=== PATIENT | male | born 1995 | race Caucasian/White ===

== ENCOUNTER 2023-01-20 23:14 | Emergency (ER) | payer BC ==
[~2023-01-20] VITALS: Ht 177.8 cm; Wt 149.7 kg
[2023-01-20 23:25] VITALS: BP_SYST 134
--- NOTE | 2023-01-20 23:30 | NUR ---
Patient triaged and placed in waiting room. VSS and patient appears in no acute distress at this time. Accompanied by mother, awaiting available bed, and MD notified of need for MSE.
[2023-01-21 01:16] LABS: BASOPHILS % (AUTO) 0.5 % (0.0-2.0); EOSINOPHILS # (AUTO) 0.3 K/uL (0.0-0.4); EOSINOPHILS % (AUTO) 3.9 % (0.0-4.0); HEMATOCRIT 43.3 % (36-54); HEMOGLOBIN 14.2 g/dL (14.0-18.0); LYMPHOCYTES # (AUTO) 2.9 K/uL (1.0-5.5); LYMPHOCYTES % (AUTO) 38.4 % (20.5-51.5); MEAN CORPUSCULAR HEMOGLOBIN 28 pg (27-31); MEAN CORPUSCULAR HGB CONC 33 % (32-36); MEAN CORPUSCULAR VOLUME 86 fL (79.0-98.0); MONOCYTES # (AUTO) 0.5 K/uL (0.0-1.0); MONOCYTES % (AUTO) 6.3 % (1.7-9.3); NEUTROPHILS # (AUTO) 3.8 K/uL (1.8-7.7); NEUTROPHILS % (AUTO) 50.9 % (40.0-70.0); PLATELET COUNT (AUTO) 224 K/uL (130-430); RED BLOOD CELL COUNT(AUTO) 5.05 MIL/uL (4.2-6.2); RED CELL DISTRIBUTION WIDTH 14.8 % (9.0-15.0); WHITE BLOOD COUNT (AUTO) 7.5 K/uL (4.8-10.8)
[2023-01-21 01:24] LABS: ANION GAP 7 (5-15); CALCIUM 8.9 mg/dL (8.4-11.0); CHLORIDE 102 mmol/L (98-107); CREATININE 0.97 mg/dL (0.55-1.30); GFR AFRICAN AMERICAN 118 mL/min (>90); GLUCOSE 101 mg/dL (70-99); UREA NITROGEN, BLOOD 8 mg/dL (8-21)
[2023-01-21 01:31] LABS: ALANINE AMINOTRANSFERASE 83 U/L (12-78); ASPARTATE AMINOTRANSFERASE 35 U/L (10-37); TOTAL BILIRUBIN 0.4 mg/dL (0.0-1.0)
--- NOTE | 2023-01-21 03:00 | NUR ---
Patient triaged and placed in bed 3. VSS and patient appears in no acute distress at this time. Accompanied by mother, report given to tanesha trent
--- NOTE | 2023-01-21 03:15 | NUR ---
md weston along with myself at bedside for eval and orders.
[2023-01-21] MEDS ORDERED: DICL20GE TP (03:33)
[2023-01-21] MEDS ORDERED: LIDO1ADH22 TP (03:34)
[2023-01-21] MEDS ORDERED: NAPR-1172 PO (03:34)
[2023-01-21] MEDS: LIDOCAINE PATCH 5% 1 EA TP ONE (03:46)
[2023-01-21] MEDS: KETOROLAC TROMETHAMINE 30 MG VIAL IM ONE (03:49)
[2023-01-21] MEDS: ACETAMINOPHEN 500 MG TABLET PO ONE (03:53)
== END 2023-01-21 04:12 | disposition home or self-care (01) ==
LOC: SED 23:14
DX: S29.011A Strain of muscle and tendon of front wall of thorax, initial encounter (principal); Z79.899 Other long term (current) drug therapy; X58.XXXA Exposure to other specified factors, initial encounter; Y93.89 Activity, other specified; Y92.89 Other specified places as the place of occurrence of the external cause; Y99.8 Other external cause status
CPT/HCPCS: 99284; 80053; 82550; 83880; 85025; 84484; 36415; 71045; 96372; J1885; 99285